=== PATIENT | male | born 1970 | race Caucasian/White ===

== ENCOUNTER 2018-11-11 17:30 | Inpatient (IN) | payer OTHER ==
[2018-11-11 18:19] LABS: ADD MAN DIFF? NO
[2018-11-11 18:23] LABS: WHITE BLOOD COUNT 14.3 10^3/ul (4.8-10.8)
[2018-11-11 18:24] LABS: BASOPHIL # 0.1 10^3/ul (0.0-0.1); BASOPHILS % 0.3 % (0.0-2.0); EOSINOPHILS # 0.3 10^3/ul (0.0-0.5); HEMATOCRIT 37.3 % (42.0-52.0); HEMOGLOBIN 10.9 g/dl (14.0-18.0); LYMPHOCYTES # 2.5 10^3/ul (0.8-2.9); LYMPHOCYTES % 17.3 % (15.0-51.0); MEAN CORPUSCULAR HEMOGLOBIN 23.5 pg (29.0-33.0); MEAN CORPUSCULAR HGB CONC 29.2 g/dl (32.0-37.0); MEAN CORPUSCULAR VOLUME 80.6 fl (82.0-101.0); MONOCYTE # 1.3 10^3/ul (0.3-0.9); MONOCYTES % 8.7 % (0.0-11.0); NEUTROPHIL # 10.1 10^3/ul (1.6-7.5); NEUTROPHILS % 70.7 % (39.0-77.0); PLATELET COUNT 383 10^3/UL (140-415); RED BLOOD COUNT 4.63 10^6/ul (4.70-6.10); RED CELL DISTRIBUTION WIDTH 21.9 % (11.5-14.5)
[2018-11-11 18:41] LABS: ANION GAP 9 (5-13); BLOOD UREA NITROGEN 15 mg/dl (7-20); CALCIUM 9.2 mg/dl (8.4-10.2); CARBON DIOXIDE 33 mmol/L (21-31); CHLORIDE 99 mmol/L (97-110); CREATININE 0.69 mg/dl (0.61-1.24); Estimated GFR > 60 mL/min (>60); GLUCOSE 185 mg/dl (70-220); POTASSIUM 3.5 mmol/L (3.5-5.1); SODIUM 141 mmol/L (135-144)
[2018-11-11] MEDS ORDERED: ONDANSETRON 4 MG INJ IV ×2 (19:00→22:30)
[2018-11-11] MEDS ORDERED: ACETAMINOPHEN 325 MG TAB PO ×2 (19:00→22:30)
[2018-11-11 19:27] LABS: TROPONIN-I < 0.012 ng/ml (0.000-0.120)
[2018-11-11 19:27] LABS: B-TYPE NATRIURETIC PEPTIDE 64 PG/ML (0-125)
[2018-11-11] MEDS ORDERED: NACL 0.9% 3 ML SYG IV (22:30)
[2018-11-12] MEDS: METHOTREXATE 2.5 MG TAB PO (06:37)
[2018-11-12 07:51] LABS: ADD MAN DIFF? NO
[2018-11-12 08:02] LABS: BASOPHIL # 0.1 10^3/ul (0.0-0.1); BASOPHILS % 0.4 % (0.0-2.0); EOSINOPHILS # 0.4 10^3/ul (0.0-0.5); EOSINOPHILS % 2.2 % (0.0-7.0); HEMATOCRIT 36.6 % (42.0-52.0); HEMOGLOBIN 10.6 g/dl (14.0-18.0); LYMPHOCYTES # 2.3 10^3/ul (0.8-2.9); LYMPHOCYTES % 14.4 % (15.0-51.0); MEAN CORPUSCULAR HEMOGLOBIN 23.8 pg (29.0-33.0); MEAN CORPUSCULAR VOLUME 82.2 fl (82.0-101.0); MEAN PLATELET VOLUME 10.1 fl (7.4-10.4); MONOCYTE # 1.5 10^3/ul (0.3-0.9); MONOCYTES % 9.3 % (0.0-11.0); NEUTROPHIL # 11.7 10^3/ul (1.6-7.5); NEUTROPHILS % 72.5 % (39.0-77.0); PLATELET COUNT 377 10^3/UL (140-415); RED BLOOD COUNT 4.45 10^6/ul (4.70-6.10); RED CELL DISTRIBUTION WIDTH 21.8 % (11.5-14.5)
[2018-11-12 08:02] LABS: WHITE BLOOD COUNT 16.1 10^3/ul (4.8-10.8)
[2018-11-12 08:17] LABS: ALANINE AMINOTRANSFERASE 29 IU/L (13-69); ALBUMIN 3.7 g/dl (3.3-4.9); ALBUMIN/GLOBULIN RATIO 1.08; ALKALINE PHOSPHATASE 45 IU/L (42-121); ANION GAP 9 (5-13); ASPARTATE AMINO TRANSFERASE 16 IU/L (15-46); BILIRUBIN,INDIRECT 0.5 mg/dl (0-1.1); BILIRUBIN,TOTAL 0.5 mg/dl (0.2-1.3); BLOOD UREA NITROGEN 12 mg/dl (7-20); CARBON DIOXIDE 33 mmol/L (21-31); CHLORIDE 99 mmol/L (97-110); CHOL/HDL RATIO 3.4 RATIO; CHOLESTEROL 144 mg/dl (100-200); CREATININE 0.61 mg/dl (0.61-1.24); Estimated GFR > 60 mL/min (>60); GLUCOSE 120 mg/dl (70-220); HDL CHOLESTEROL 42 mg/dl (27-67); LDL CHOLESTEROL,CALCULATED 88 mg/dl; MAGNESIUM 1.6 mg/dl (1.7-2.5); POTASSIUM 3.7 mmol/L (3.5-5.1); SODIUM 141 mmol/L (135-144); TOTAL PROTEIN 7.1 g/dl (6.1-8.1); TRIGLYCERIDES 69 mg/dl (0-149)
[2018-11-12] MEDS: LOSARTAN 50 MG TAB PO (09:10)
[2018-11-12] MEDS: FOLIC ACID 1 MG TAB PO (09:10)
[2018-11-12] MEDS: MOMETASONE 0.24 GM INHALER INH ×2 (09:11→21:47)
[2018-11-12] MEDS: predniSONE 20 MG TAB PO ×2 (09:11→21:48)
[2018-11-12] MEDS: ENOXAPARIN 40 MG/0.4 ML SYG SC (09:34)
[2018-11-12] MEDS: morphine 4 MG/ML VIAL IV ×3 (09:44→23:31)
[2018-11-12] MEDS: LEVOFLOXACIN 750MG/D5W (PMX) 150 ML IVPB (11:45)
[2018-11-12] MEDS: TRIAMCINOLONE ACET 0.025% 15 GM OINT TOP ×3 (11:45→21:47)
[2018-11-12 16:42] LABS: ADD UMIC NO; UR ASCORBIC ACID NEGATIVE (NEGATIVE); UR BILIRUBIN (Dip) NEGATIVE (NEGATIVE); UR BLOOD (Dip) NEGATIVE (NEGATIVE); UR CLARITY CLEAR (CLEAR); UR COLOR YELLOW (YELLOW); UR GLUCOSE (Dip) NEGATIVE (NEGATIVE); UR KETONES (Dip) NEGATIVE (NEGATIVE); UR LEUKOCYTE ESTERASE (Dip) NEGATIVE Leu/ul (NEGATIVE); UR NITRITE (Dip) NEGATIVE (NEGATIVE); UR SPECIFIC GRAVITY (Dip) 1.012 (1.003-1.030); UR TOTAL PROTEIN (Dip) NEGATIVE (NEGATIVE); UR UROBILINOGEN (Dip) NEGATIVE (NEGATIVE)
[2018-11-12] MEDS: MAGNESIUM SULFATE 3 GM in DEXTROSE 5% 100 ML IVPB (18:33)
[2018-11-12] MEDS: ATORVASTATIN 40 MG TAB PO (21:48)
[2018-11-13] MEDS: ALBUTEROL/IPRATROPIUM (NEB) 3 ML AMP HHN ×4 (00:39→21:03)
[2018-11-13] MEDS: morphine 4 MG/ML VIAL IV ×4 (03:49→21:26)
[2018-11-13 05:55] LABS: ADD MAN DIFF? NO
[2018-11-13 05:57] LABS: ABNORMAL IP MESSAGE 1; BASOPHILS % 0.2 % (0.0-2.0); EOSINOPHILS # 0.2 10^3/ul (0.0-0.5); EOSINOPHILS % 1.1 % (0.0-7.0); HEMATOCRIT 35.4 % (42.0-52.0); HEMOGLOBIN 10.1 g/dl (14.0-18.0); LYMPHOCYTES # 1.5 10^3/ul (0.8-2.9); LYMPHOCYTES % 9.8 % (15.0-51.0); MEAN CORPUSCULAR HEMOGLOBIN 23.5 pg (29.0-33.0); MEAN CORPUSCULAR HGB CONC 28.5 g/dl (32.0-37.0); MEAN CORPUSCULAR VOLUME 82.3 fl (82.0-101.0); MEAN PLATELET VOLUME 9.2 fl (7.4-10.4); MONOCYTES % 6.1 % (0.0-11.0); NEUTROPHIL # 12.9 10^3/ul (1.6-7.5); NEUTROPHILS % 82.2 % (39.0-77.0); PLATELET COUNT 318 10^3/UL (140-415); POSITIVE DIFF @See below; RED CELL DISTRIBUTION WIDTH 21.9 % (11.5-14.5)
[2018-11-13 05:57] LABS: WHITE BLOOD COUNT 15.7 10^3/ul (4.8-10.8)
[2018-11-13 06:45] LABS: ANION GAP 9 (5-13); BLOOD UREA NITROGEN 15 mg/dl (7-20); CALCIUM 8.9 mg/dl (8.4-10.2); CARBON DIOXIDE 33 mmol/L (21-31); CHLORIDE 97 mmol/L (97-110); CREATININE 0.59 mg/dl (0.61-1.24); Estimated GFR > 60 mL/min (>60); GLUCOSE 158 mg/dl (70-220); PHOSPHORUS 3.6 mg/dl (2.5-4.9); POTASSIUM 4.5 mmol/L (3.5-5.1); SODIUM 139 mmol/L (135-144)
[2018-11-13 07:23] LABS: MAGNESIUM 1.8 mg/dl (1.7-2.5)
[2018-11-13] MEDS: MOMETASONE 0.24 GM INHALER INH ×2 (08:48→20:36)
[2018-11-13] MEDS: LOSARTAN 50 MG TAB PO (08:48)
[2018-11-13] MEDS: predniSONE 20 MG TAB PO ×2 (08:48→20:35)
[2018-11-13] MEDS: FOLIC ACID 1 MG TAB PO (08:48)
[2018-11-13] MEDS: ENOXAPARIN 40 MG/0.4 ML SYG SC (08:53)
[2018-11-13] MEDS: TRIAMCINOLONE ACET 0.025% 15 GM OINT TOP ×3 (09:47→20:36)
[2018-11-13] MEDS: LEVOFLOXACIN 750MG/D5W (PMX) 150 ML IVPB (11:27)
[2018-11-13] MEDS: ATORVASTATIN 40 MG TAB PO (20:35)
[2018-11-14] MEDS: morphine 4 MG/ML VIAL IV ×3 (01:28→23:19)
[2018-11-14] MEDS: DIPHENHYDRAMINE 50 MG INJ IV (03:26)
[2018-11-14 06:23] LABS: ADD MAN DIFF? NO
[2018-11-14 06:34] LABS: ABNORMAL IP MESSAGE 1; BASOPHIL # 0.1 10^3/ul (0.0-0.1); BASOPHILS % 0.4 % (0.0-2.0); EOSINOPHILS # 0.2 10^3/ul (0.0-0.5); EOSINOPHILS % 1.4 % (0.0-7.0); HEMATOCRIT 35.1 % (42.0-52.0); HEMOGLOBIN 10.1 g/dl (14.0-18.0); LYMPHOCYTES # 1.5 10^3/ul (0.8-2.9); LYMPHOCYTES % 10.9 % (15.0-51.0); MEAN CORPUSCULAR HEMOGLOBIN 23.4 pg (29.0-33.0); MEAN CORPUSCULAR HGB CONC 28.8 g/dl (32.0-37.0); MEAN CORPUSCULAR VOLUME 81.4 fl (82.0-101.0); MONOCYTE # 0.8 10^3/ul (0.3-0.9); MONOCYTES % 5.6 % (0.0-11.0); NEUTROPHIL # 11.1 10^3/ul (1.6-7.5); NEUTROPHILS % 81.1 % (39.0-77.0); POSITIVE DIFF @See below; RED BLOOD COUNT 4.31 10^6/ul (4.70-6.10); RED CELL DISTRIBUTION WIDTH 22.1 % (11.5-14.5)
[2018-11-14 06:34] LABS: WHITE BLOOD COUNT 13.6 10^3/ul (4.8-10.8)
[2018-11-14 06:38] LABS: MEAN PLATELET VOLUME 11.1 fl (7.4-10.4); PLATELET COUNT 231 10^3/UL (140-415)
[2018-11-14] MEDS: MOMETASONE 0.24 GM INHALER INH ×2 (09:10→20:52)
[2018-11-14] MEDS: ENOXAPARIN 40 MG/0.4 ML SYG SC (09:11)
[2018-11-14] MEDS: LOSARTAN 50 MG TAB PO (09:12)
[2018-11-14] MEDS: DIPHENHYDRAMINE 25 MG CAP PO ×2 (09:12→19:35)
[2018-11-14] MEDS: FOLIC ACID 1 MG TAB PO (09:12)
[2018-11-14] MEDS: predniSONE 20 MG TAB PO (09:12)
[2018-11-14] MEDS: TRIAMCINOLONE ACET 0.025% 15 GM OINT TOP ×3 (09:15→23:14)
[2018-11-14] MEDS: LEVOFLOXACIN 750MG/D5W (PMX) 150 ML IVPB (16:12)
[2018-11-14] MEDS: ALBUTEROL/IPRATROPIUM (NEB) 3 ML AMP HHN (17:47)
[2018-11-14] MEDS: ATORVASTATIN 40 MG TAB PO (20:52)
[2018-11-14] MEDS ORDERED: TRIAMCINOLONE ACET 0.025% 15 GM OINT TOP (21:00)
[2018-11-15] MEDS: DIPHENHYDRAMINE 25 MG CAP PO ×2 (04:54→14:34)
[2018-11-15] MEDS: GUAIFENESIN/CODEINE 5ML CUP PO (05:39)
[2018-11-15] MEDS: FOLIC ACID 1 MG TAB PO (08:29)
[2018-11-15] MEDS: TRIAMCINOLONE ACET 0.025% 15 GM OINT TOP ×3 (08:29→21:20)
[2018-11-15] MEDS: LOSARTAN 50 MG TAB PO (08:30)
[2018-11-15] MEDS: MOMETASONE 0.24 GM INHALER INH ×2 (08:30→21:18)
[2018-11-15] MEDS: morphine 4 MG/ML VIAL IV (08:32)
[2018-11-15] MEDS: ENOXAPARIN 40 MG/0.4 ML SYG SC (08:47)
[2018-11-15] MEDS: LEVOFLOXACIN 750MG/D5W (PMX) 150 ML IVPB (11:36)
[2018-11-15] MEDS: ALBUTEROL/IPRATROPIUM (NEB) 3 ML AMP HHN (20:44)
[2018-11-15] MEDS: ATORVASTATIN 40 MG TAB PO (21:18)
[2018-11-16] MEDS: LEVOFLOXACIN 750 MG TABLET PO (06:32)
[2018-11-16] MEDS: LOSARTAN 50 MG TAB PO (08:58)
[2018-11-16] MEDS: FOLIC ACID 1 MG TAB PO (08:58)
[2018-11-16] MEDS: TRIAMCINOLONE ACET 0.025% 15 GM OINT TOP ×3 (08:58→20:36)
[2018-11-16] MEDS: MOMETASONE 0.24 GM INHALER INH ×2 (08:58→20:35)
[2018-11-16] MEDS: ENOXAPARIN 40 MG/0.4 ML SYG SC (09:06)
[2018-11-16] MEDS: GUAIFENESIN 20 MG/ML 5ML CUP PO (20:35)
[2018-11-16] MEDS: ATORVASTATIN 40 MG TAB PO (20:36)
[2018-11-17] MEDS: GUAIFENESIN 20 MG/ML 5ML CUP PO ×2 (02:27→05:45)
[2018-11-17] MEDS: LEVOFLOXACIN 750 MG TABLET PO (05:45)
[2018-11-17] MEDS: MOMETASONE 0.24 GM INHALER INH ×2 (09:00→20:59)
[2018-11-17] MEDS: LOSARTAN 50 MG TAB PO (09:00)
[2018-11-17] MEDS: FOLIC ACID 1 MG TAB PO (09:00)
[2018-11-17] MEDS: TRIAMCINOLONE ACET 0.025% 15 GM OINT TOP ×3 (09:00→20:59)
[2018-11-17] MEDS: ENOXAPARIN 40 MG/0.4 ML SYG SC (09:00)
[2018-11-17] MEDS: NYSTATIN 30 GM POWDER BTL TOP ×2 (13:30→20:59)
[2018-11-17] MEDS: predniSONE 20 MG TAB PO (14:28)
[2018-11-17] MEDS: ALBUTEROL/IPRATROPIUM (NEB) 3 ML AMP HHN (15:55)
[2018-11-17] MEDS: HYDROCODONE/APAP (5/325) TAB PO (18:35)
[2018-11-17] MEDS: ATORVASTATIN 40 MG TAB PO (20:59)
[2018-11-17] MEDS: DIPHENHYDRAMINE 25 MG CAP PO (20:59)
[2018-11-17] MEDS: FUROSEMIDE 40 MG INJ IV (22:30)
[2018-11-18] MEDS: DIPHENHYDRAMINE 25 MG CAP PO ×3 (03:33→23:26)
[2018-11-18] MEDS: LEVOFLOXACIN 750 MG TABLET PO (05:49)
[2018-11-18] MEDS: TRIAMCINOLONE ACET 0.025% 15 GM OINT TOP ×3 (09:44→20:56)
[2018-11-18] MEDS: MOMETASONE 0.24 GM INHALER INH ×2 (09:44→20:55)
[2018-11-18] MEDS: FOLIC ACID 1 MG TAB PO (09:44)
[2018-11-18] MEDS: NYSTATIN 30 GM POWDER BTL TOP ×2 (09:44→20:55)
[2018-11-18] MEDS: LOSARTAN 50 MG TAB PO (09:45)
[2018-11-18] MEDS: ENOXAPARIN 40 MG/0.4 ML SYG SC (09:48)
[2018-11-18] MEDS: predniSONE 20 MG TAB PO (09:50)
[2018-11-18] MEDS: METHOTREXATE 2.5 MG TAB PO (16:45)
[2018-11-18] MEDS: FUROSEMIDE 20 MG TAB PO (19:05)
[2018-11-18] MEDS: ATORVASTATIN 40 MG TAB PO (20:55)
[2018-11-18] MEDS: ALBUTEROL/IPRATROPIUM (NEB) 3 ML AMP HHN (21:24)
[2018-11-18] MEDS: morphine 2 MG INJ IV (22:40)
[2018-11-19] MEDS: DIPHENHYDRAMINE 25 MG CAP PO ×2 (05:21→23:00)
[2018-11-19] MEDS: FUROSEMIDE 20 MG TAB PO (05:21)
[2018-11-19] MEDS: LEVOFLOXACIN 750 MG TABLET PO (05:21)
[2018-11-19] MEDS: ALBUTEROL/IPRATROPIUM (NEB) 3 ML AMP HHN ×2 (06:09→08:48)
[2018-11-19] MEDS: FUROSEMIDE 20 MG INJ IV ×2 (09:41→18:26)
[2018-11-19] MEDS: LOSARTAN 50 MG TAB PO (09:41)
[2018-11-19] MEDS: predniSONE 20 MG TAB PO (09:41)
[2018-11-19] MEDS: FOLIC ACID 1 MG TAB PO (09:41)
[2018-11-19] MEDS: ENOXAPARIN 40 MG/0.4 ML SYG SC (09:48)
[2018-11-19] MEDS: TRIAMCINOLONE ACET 0.025% 15 GM OINT TOP ×3 (09:49→21:09)
[2018-11-19] MEDS: MOMETASONE 0.24 GM INHALER INH ×2 (09:49→21:08)
[2018-11-19] MEDS: NYSTATIN 30 GM POWDER BTL TOP ×2 (09:49→21:09)
[2018-11-19] MEDS: traMADol 50 MG TAB PO ×2 (12:44→23:00)
[2018-11-19] MEDS ORDERED: FUROSEMIDE 20 MG INJ IV (18:00)
[2018-11-19] MEDS: ATORVASTATIN 40 MG TAB PO (21:08)
[2018-11-20] MEDS: ALBUTEROL/IPRATROPIUM (NEB) 3 ML AMP HHN ×3 (00:50→20:53)
[2018-11-20] MEDS: LEVOFLOXACIN 750 MG TABLET PO (05:14)
[2018-11-20] MEDS: DIPHENHYDRAMINE 25 MG CAP PO ×3 (05:14→23:37)
[2018-11-20] MEDS: traMADol 50 MG TAB PO ×2 (05:14→14:33)
[2018-11-20] MEDS: FUROSEMIDE 20 MG INJ IV ×2 (05:15→17:41)
[2018-11-20] MEDS: predniSONE 20 MG TAB PO (08:27)
[2018-11-20] MEDS: FOLIC ACID 1 MG TAB PO (08:27)
[2018-11-20] MEDS: LOSARTAN 50 MG TAB PO (08:28)
[2018-11-20] MEDS: MOMETASONE 0.24 GM INHALER INH ×2 (08:28→21:53)
[2018-11-20] MEDS: NYSTATIN 30 GM POWDER BTL TOP ×2 (08:33→21:53)
[2018-11-20] MEDS: TRIAMCINOLONE ACET 0.025% 15 GM OINT TOP ×3 (08:33→21:56)
[2018-11-20] MEDS: ENOXAPARIN 40 MG/0.4 ML SYG SC (08:35)
[2018-11-20] MEDS ORDERED: morphine 2 MG INJ IV (09:30)
[2018-11-20] MEDS ORDERED: METHYLPREDNISOLONE 40 MG INJ IV (12:00)
[2018-11-20] MEDS: ATORVASTATIN 40 MG TAB PO (21:53)
[2018-11-21] MEDS: traMADol 50 MG TAB PO ×3 (01:14→22:58)
[2018-11-21] MEDS: LEVOFLOXACIN 750 MG TABLET PO (06:00)
[2018-11-21] MEDS: FUROSEMIDE 20 MG INJ IV (06:00)
[2018-11-21 08:13] LABS: ADD MAN DIFF? NO
[2018-11-21 08:29] LABS: WHITE BLOOD COUNT 10.7 10^3/ul (4.8-10.8)
[2018-11-21 08:29] LABS: ABNORMAL IP MESSAGE 1; BASOPHILS % 0.4 % (0.0-2.0); EOSINOPHILS # 0.3 10^3/ul (0.0-0.5); EOSINOPHILS % 2.4 % (0.0-7.0); HEMATOCRIT 35.9 % (42.0-52.0); HEMOGLOBIN 9.9 g/dl (14.0-18.0); LYMPHOCYTES % 18.7 % (15.0-51.0); MEAN CORPUSCULAR HEMOGLOBIN 23.1 pg (29.0-33.0); MEAN CORPUSCULAR HGB CONC 27.6 g/dl (32.0-37.0); MEAN CORPUSCULAR VOLUME 83.9 fl (82.0-101.0); MEAN PLATELET VOLUME 9.5 fl (7.4-10.4); MONOCYTE # 0.7 10^3/ul (0.3-0.9); MONOCYTES % 6.8 % (0.0-11.0); NEUTROPHIL # 7.6 10^3/ul (1.6-7.5); NEUTROPHILS % 71.3 % (39.0-77.0); PLATELET COUNT 389 10^3/UL (140-415); POSITIVE DIFF @See below; RED BLOOD COUNT 4.28 10^6/ul (4.70-6.10); RED CELL DISTRIBUTION WIDTH 21.4 % (11.5-14.5)
[2018-11-21 08:43] LABS: BLOOD UREA NITROGEN 20 mg/dl (7-20); CALCIUM 9.1 mg/dl (8.4-10.2); CHLORIDE 90 mmol/L (97-110); CREATININE 0.56 mg/dl (0.61-1.24); Estimated GFR > 60 mL/min (>60); GLUCOSE 104 mg/dl (70-220); POTASSIUM 3.9 mmol/L (3.5-5.1); SODIUM 140 mmol/L (135-144)
[2018-11-21 08:51] LABS: ANION GAP 10 (5-13)
[2018-11-21 08:56] LABS: CARBON DIOXIDE 40 mmol/L (21-31)
[2018-11-21] MEDS: ALBUTEROL/IPRATROPIUM (NEB) 3 ML AMP HHN ×3 (08:57→22:11)
[2018-11-21] MEDS: MOMETASONE 0.24 GM INHALER INH ×2 (09:09→21:39)
[2018-11-21] MEDS: predniSONE 20 MG TAB PO (09:09)
[2018-11-21] MEDS: LOSARTAN 50 MG TAB PO (09:09)
[2018-11-21] MEDS: FOLIC ACID 1 MG TAB PO (09:09)
[2018-11-21] MEDS: NYSTATIN 30 GM POWDER BTL TOP ×2 (09:14→19:43)
[2018-11-21] MEDS: ENOXAPARIN 40 MG/0.4 ML SYG SC (09:14)
[2018-11-21] MEDS: TRIAMCINOLONE ACET 0.025% 15 GM OINT TOP ×3 (09:14→19:43)
[2018-11-21] MEDS: POTASSIUM CHLORIDE (SR) 20 MEQ TAB PO (09:37)
[2018-11-21 12:15] LABS: AADO2 Arterial 82.1 mmHg (7.0-24.0); Allen Test ACCEPTAB; Arterial Base Excess 10.6 mmol/L (-3.0-3); Arterial Blood Gas Oxygen Sat 94.3 mmHG (95.0-98.0); Arterial COHb 0.8 % (0.0-3.0); Arterial Fraction of Oxyhgb 93.4 % (93.0-99.0); Arterial MetHb 0.2 % (0.0-1.5); Arterial pCO2 66.4 mmhg (35-45); MODE NASAL CANNULA; Site Left Radial
[2018-11-21] MEDS: DIPHENHYDRAMINE 25 MG CAP PO (14:45)
[2018-11-21] MEDS: ATORVASTATIN 40 MG TAB PO (19:41)
[2018-11-22] MEDS: DIPHENHYDRAMINE 25 MG CAP PO ×2 (02:54→05:49)
[2018-11-22] MEDS: traMADol 50 MG TAB PO (05:14)
[2018-11-22 07:37] LABS: BLOOD UREA NITROGEN 17 mg/dl (7-20); CALCIUM 9.4 mg/dl (8.4-10.2); CHLORIDE 94 mmol/L (97-110); CREATININE 0.66 mg/dl (0.61-1.24); Estimated GFR > 60 mL/min (>60); GLUCOSE 105 mg/dl (70-220); SODIUM 139 mmol/L (135-144)
[2018-11-22 08:23] LABS: ANION GAP 7 (5-13)
[2018-11-22 08:29] LABS: CARBON DIOXIDE 38 mmol/L (21-31)
[2018-11-22] MEDS: FOLIC ACID 1 MG TAB PO (09:28)
[2018-11-22] MEDS: LOSARTAN 50 MG TAB PO (09:29)
[2018-11-22] MEDS: predniSONE 20 MG TAB PO (09:30)
[2018-11-22] MEDS: ENOXAPARIN 40 MG/0.4 ML SYG SC (09:35)
[2018-11-22] MEDS: KETOROLAC 30 MG INJ IV ×2 (09:36→17:48)
[2018-11-22] MEDS: NYSTATIN 30 GM POWDER BTL TOP ×2 (09:36→21:57)
[2018-11-22] MEDS: MOMETASONE 0.24 GM INHALER INH ×2 (09:37→21:57)
[2018-11-22] MEDS: TRIAMCINOLONE ACET 0.025% 15 GM OINT TOP ×3 (09:37→21:57)
[2018-11-22] MEDS: ALBUTEROL/IPRATROPIUM (NEB) 3 ML AMP HHN (14:22)
[2018-11-22] MEDS: FUROSEMIDE 20 MG INJ IV (17:48)
[2018-11-22] MEDS: ATORVASTATIN 40 MG TAB PO (21:56)
[2018-11-22] MEDS: CLOBETASOL 0.05% 15 GM OINT TOP (21:57)
[2018-11-23] MEDS: KETOROLAC 30 MG INJ IV ×2 (01:04→09:05)
[2018-11-23] MEDS: FUROSEMIDE 20 MG INJ IV ×2 (06:26→18:26)
[2018-11-23] MEDS: predniSONE 20 MG TAB PO (08:35)
[2018-11-23] MEDS: FOLIC ACID 1 MG TAB PO (08:35)
[2018-11-23] MEDS: LOSARTAN 50 MG TAB PO (08:36)
[2018-11-23] MEDS: NYSTATIN 30 GM POWDER BTL TOP ×2 (08:36→21:38)
[2018-11-23] MEDS: CLOBETASOL 0.05% 15 GM OINT TOP ×2 (08:37→21:38)
[2018-11-23] MEDS: MOMETASONE 0.24 GM INHALER INH ×2 (08:37→21:39)
[2018-11-23] MEDS: TRIAMCINOLONE ACET 0.025% 15 GM OINT TOP ×3 (08:39→21:42)
[2018-11-23] MEDS: ENOXAPARIN 40 MG/0.4 ML SYG SC (09:03)
[2018-11-23] MEDS: morphine 2 MG INJ IV (17:25)
[2018-11-23] MEDS: ATORVASTATIN 40 MG TAB PO (21:38)
[2018-11-24] MEDS: KETOROLAC 30 MG INJ IV (00:07)
[2018-11-24] MEDS: FUROSEMIDE 20 MG INJ IV ×2 (06:40→17:34)
[2018-11-24] MEDS: LOSARTAN 50 MG TAB PO (09:10)
[2018-11-24] MEDS: predniSONE 20 MG TAB PO (09:10)
[2018-11-24] MEDS: MOMETASONE 0.24 GM INHALER INH ×2 (09:10→20:48)
[2018-11-24] MEDS: FOLIC ACID 1 MG TAB PO (09:10)
[2018-11-24] MEDS: NYSTATIN 30 GM POWDER BTL TOP ×2 (09:11→20:47)
[2018-11-24] MEDS: TRIAMCINOLONE ACET 0.025% 15 GM OINT TOP ×2 (09:11→12:52)
[2018-11-24] MEDS: CLOBETASOL 0.05% 15 GM OINT TOP ×2 (09:11→20:47)
[2018-11-24] MEDS: ENOXAPARIN 40 MG/0.4 ML SYG SC (11:30)
[2018-11-24] MEDS: DAKINS 0.0125%(1/40) 473 ML SOLUTION TP (16:30)
[2018-11-24] MEDS: ATORVASTATIN 40 MG TAB PO (20:47)
[2018-11-25] MEDS: TRIAMCINOLONE ACET 0.025% 15 GM OINT TOP ×4 (00:55→20:54)
[2018-11-25] MEDS: KETOROLAC 30 MG INJ IV (02:55)
[2018-11-25] MEDS: FUROSEMIDE 20 MG INJ IV ×5 (05:04→21:07)
[2018-11-25] MEDS: NYSTATIN 30 GM POWDER BTL TOP ×2 (08:35→20:54)
[2018-11-25] MEDS: FOLIC ACID 1 MG TAB PO (08:36)
[2018-11-25] MEDS: predniSONE 20 MG TAB PO (08:36)
[2018-11-25] MEDS: MOMETASONE 0.24 GM INHALER INH ×2 (08:36→20:53)
[2018-11-25] MEDS: DAKINS 0.0125%(1/40) 473 ML SOLUTION TP (08:38)
[2018-11-25] MEDS: LOSARTAN 50 MG TAB PO (08:40)
[2018-11-25] MEDS: ENOXAPARIN 40 MG/0.4 ML SYG SC (08:52)
[2018-11-25] MEDS: CLOBETASOL 0.05% 15 GM OINT TOP ×2 (08:52→21:00)
[2018-11-25] MEDS: DIPHENHYDRAMINE 25 MG CAP PO (08:54)
[2018-11-25] MEDS: traMADol 50 MG TAB PO (13:27)
[2018-11-25] MEDS: METHOTREXATE 2.5 MG TAB PO (13:30)
[2018-11-25] MEDS: ALBUTEROL/IPRATROPIUM (NEB) 3 ML AMP HHN ×2 (15:28→21:07)
[2018-11-25] MEDS: ATORVASTATIN 40 MG TAB PO (20:52)
[2018-11-26] MEDS: DIPHENHYDRAMINE 25 MG CAP PO ×3 (00:56→22:10)
[2018-11-26] MEDS: traMADol 50 MG TAB PO ×2 (03:00→17:36)
[2018-11-26] MEDS: KETOROLAC 30 MG INJ IV (03:59)
[2018-11-26] MEDS: DAKINS 0.0125%(1/40) 473 ML SOLUTION TP (09:00)
[2018-11-26] MEDS: TRIAMCINOLONE ACET 0.025% 15 GM OINT TOP ×3 (09:00→21:00)
[2018-11-26] MEDS: predniSONE 20 MG TAB PO (09:21)
[2018-11-26] MEDS: FUROSEMIDE 20 MG INJ IV ×2 (09:22→22:11)
[2018-11-26] MEDS: CLOBETASOL 0.05% 15 GM OINT TOP ×2 (09:22→22:03)
[2018-11-26] MEDS: LOSARTAN 50 MG TAB PO (09:22)
[2018-11-26] MEDS: FOLIC ACID 1 MG TAB PO (09:22)
[2018-11-26] MEDS: MOMETASONE 0.24 GM INHALER INH ×2 (09:23→22:03)
[2018-11-26] MEDS: NYSTATIN 30 GM POWDER BTL TOP ×2 (09:23→22:03)
[2018-11-26] MEDS: ENOXAPARIN 40 MG/0.4 ML SYG SC (09:34)
[2018-11-26] MEDS ORDERED: VANCOMYCIN IV PER PHARMACY XX (17:00)
[2018-11-26] MEDS: morphine 2 MG INJ IV (20:33)
[2018-11-26] MEDS: VANCOMYCIN HCL 2 GM in SOD CHLORIDE 0.9% 500 ML IVPB ×2 (20:34→23:39)
[2018-11-26] MEDS: ATORVASTATIN 40 MG TAB PO (22:11)
[2018-11-27] MEDS: morphine 2 MG INJ IV ×3 (01:09→18:18)
[2018-11-27] MEDS: traMADol 50 MG TAB PO (05:29)
[2018-11-27] MEDS: MOMETASONE 0.24 GM INHALER INH ×2 (09:33→20:42)
[2018-11-27] MEDS: VANCOMYCIN HCL 1.75 GM in SOD CHLORIDE 0.9% 500 ML IVPB ×2 (09:34→20:42)
[2018-11-27] MEDS: NYSTATIN 30 GM POWDER BTL TOP ×2 (09:34→20:43)
[2018-11-27] MEDS: CLOBETASOL 0.05% 15 GM OINT TOP ×2 (09:34→20:43)
[2018-11-27] MEDS: LOSARTAN 50 MG TAB PO (09:35)
[2018-11-27] MEDS: FOLIC ACID 1 MG TAB PO (09:35)
[2018-11-27] MEDS: FUROSEMIDE 20 MG INJ IV ×2 (09:35→20:43)
[2018-11-27] MEDS: predniSONE 20 MG TAB PO (09:36)
[2018-11-27] MEDS: TRIAMCINOLONE ACET 0.025% 15 GM OINT TOP ×3 (09:37→20:44)
[2018-11-27] MEDS: DAKINS 0.0125%(1/40) 473 ML SOLUTION TP (09:37)
[2018-11-27] MEDS: ENOXAPARIN 40 MG/0.4 ML SYG SC (09:54)
[2018-11-27] MEDS: DIPHENHYDRAMINE 25 MG CAP PO (10:28)
[2018-11-27] MEDS: KETOROLAC 30 MG INJ IV (14:53)
[2018-11-27] MEDS: ATORVASTATIN 40 MG TAB PO (20:42)
[2018-11-28] MEDS: morphine 2 MG INJ IV ×2 (00:26→12:29)
[2018-11-28] MEDS: DIPHENHYDRAMINE 25 MG CAP PO ×2 (01:15→13:38)
[2018-11-28] MEDS: KETOROLAC 30 MG INJ IV ×2 (04:16→15:34)
[2018-11-28 07:41] LABS: CREATININE 0.86 mg/dl (0.61-1.24)
[2018-11-28 07:41] LABS: BLOOD UREA NITROGEN 26 mg/dl (7-20)
[2018-11-28] MEDS: FUROSEMIDE 20 MG INJ IV ×2 (09:05→21:50)
[2018-11-28] MEDS: CLOBETASOL 0.05% 15 GM OINT TOP ×3 (09:06→21:49)
[2018-11-28] MEDS: NYSTATIN 30 GM POWDER BTL TOP ×3 (09:06→21:49)
[2018-11-28] MEDS: FOLIC ACID 1 MG TAB PO (09:06)
[2018-11-28] MEDS: LOSARTAN 50 MG TAB PO (09:06)
[2018-11-28] MEDS: MOMETASONE 0.24 GM INHALER INH ×2 (09:06→21:48)
[2018-11-28] MEDS: DAKINS 0.0125%(1/40) 473 ML SOLUTION TP (09:07)
[2018-11-28] MEDS: TRIAMCINOLONE ACET 0.025% 15 GM OINT TOP ×4 (09:07→21:50)
[2018-11-28] MEDS: VANCOMYCIN HCL 1.75 GM in SOD CHLORIDE 0.9% 500 ML IVPB ×2 (09:10→21:48)
[2018-11-28] MEDS: ENOXAPARIN 40 MG/0.4 ML SYG SC (09:17)
[2018-11-28] MEDS: ALBUTEROL/IPRATROPIUM (NEB) 3 ML AMP HHN (20:56)
[2018-11-28] MEDS: ATORVASTATIN 40 MG TAB PO (21:00)
[2018-11-29] MEDS: morphine 2 MG INJ IV (02:22)
[2018-11-29] MEDS: KETOROLAC 30 MG INJ IV ×3 (04:27→22:19)
[2018-11-29] MEDS: LOSARTAN 50 MG TAB PO (09:35)
[2018-11-29] MEDS: FOLIC ACID 1 MG TAB PO (09:36)
[2018-11-29] MEDS: NYSTATIN 30 GM POWDER BTL TOP ×2 (09:37→21:52)
[2018-11-29] MEDS: MOMETASONE 0.24 GM INHALER INH ×2 (09:37→21:51)
[2018-11-29] MEDS: TRIAMCINOLONE ACET 0.025% 15 GM OINT TOP ×3 (09:37→21:00)
[2018-11-29] MEDS: CLOBETASOL 0.05% 15 GM OINT TOP ×2 (09:38→21:52)
[2018-11-29] MEDS: DAKINS 0.0125%(1/40) 473 ML SOLUTION TP (09:38)
[2018-11-29] MEDS: ENOXAPARIN 40 MG/0.4 ML SYG SC (09:54)
[2018-11-29] MEDS: VANCOMYCIN HCL 1.75 GM in SOD CHLORIDE 0.9% 500 ML IVPB ×2 (10:53→21:51)
[2018-11-29] MEDS: FUROSEMIDE 20 MG INJ IV (10:57)
[2018-11-29 11:46] LABS: ANION GAP 6 (5-13); BLOOD UREA NITROGEN 27 mg/dl (7-20); CALCIUM 9.2 mg/dl (8.4-10.2); CARBON DIOXIDE 39 mmol/L (21-31); CHLORIDE 96 mmol/L (97-110); Estimated GFR > 60 mL/min (>60); GLUCOSE 153 mg/dl (70-220); POTASSIUM 4.5 mmol/L (3.5-5.1); SODIUM 141 mmol/L (135-144)
[2018-11-29] MEDS: ALBUTEROL/IPRATROPIUM (NEB) 3 ML AMP HHN (20:00)
[2018-11-29] MEDS: ATORVASTATIN 40 MG TAB PO (21:51)
[2018-11-30] MEDS: DIPHENHYDRAMINE 25 MG CAP PO ×2 (00:35→11:49)
[2018-11-30] MEDS: traMADol 50 MG TAB PO ×3 (00:36→21:16)
[2018-11-30] MEDS: morphine 2 MG INJ IV (02:36)
[2018-11-30 08:47] LABS: ADD MAN DIFF? NO
[2018-11-30 08:53] LABS: ABNORMAL IP MESSAGE 1; BASOPHIL # 0.1 10^3/ul (0.0-0.1); BASOPHILS % 0.5 % (0.0-2.0); EOSINOPHILS # 0.4 10^3/ul (0.0-0.5); EOSINOPHILS % 3.5 % (0.0-7.0); HEMATOCRIT 34.9 % (42.0-52.0); HEMOGLOBIN 9.7 g/dl (14.0-18.0); LYMPHOCYTES # 1.5 10^3/ul (0.8-2.9); LYMPHOCYTES % 14.2 % (15.0-51.0); MEAN CORPUSCULAR HEMOGLOBIN 23.6 pg (29.0-33.0); MEAN CORPUSCULAR HGB CONC 27.8 g/dl (32.0-37.0); MEAN CORPUSCULAR VOLUME 84.9 fl (82.0-101.0); MEAN PLATELET VOLUME 9.6 fl (7.4-10.4); MONOCYTE # 0.8 10^3/ul (0.3-0.9); MONOCYTES % 7.5 % (0.0-11.0); NEUTROPHIL # 7.8 10^3/ul (1.6-7.5); NEUTROPHILS % 73.1 % (39.0-77.0); PLATELET COUNT 358 10^3/UL (140-415); POSITIVE DIFF @See below; RED BLOOD COUNT 4.11 10^6/ul (4.70-6.10); RED CELL DISTRIBUTION WIDTH 21.8 % (11.5-14.5)
[2018-11-30 08:53] LABS: WHITE BLOOD COUNT 10.7 10^3/ul (4.8-10.8)
[2018-11-30] MEDS: DAKINS 0.0125%(1/40) 473 ML SOLUTION TP (09:00)
[2018-11-30] MEDS: LOSARTAN 50 MG TAB PO (09:00)
[2018-11-30] MEDS: CLOBETASOL 0.05% 15 GM OINT TOP ×2 (09:00→13:38)
[2018-11-30] MEDS: FOLIC ACID 1 MG TAB PO (09:00)
[2018-11-30] MEDS: TRIAMCINOLONE ACET 0.025% 15 GM OINT TOP ×3 (09:00→20:59)
[2018-11-30] MEDS: MOMETASONE 0.24 GM INHALER INH ×2 (09:01→20:59)
[2018-11-30] MEDS: NYSTATIN 30 GM POWDER BTL TOP ×2 (09:01→20:59)
[2018-11-30] MEDS: FUROSEMIDE 20 MG INJ IV (09:01)
[2018-11-30] MEDS: ENOXAPARIN 40 MG/0.4 ML SYG SC (09:12)
[2018-11-30 09:17] LABS: ANION GAP 5 (5-13); BLOOD UREA NITROGEN 21 mg/dl (7-20); CALCIUM 9.1 mg/dl (8.4-10.2); CARBON DIOXIDE 39 mmol/L (21-31); CHLORIDE 97 mmol/L (97-110); CREATININE 0.62 mg/dl (0.61-1.24); Estimated GFR > 60 mL/min (>60); GLUCOSE 100 mg/dl (70-220); POTASSIUM 4.4 mmol/L (3.5-5.1); SODIUM 141 mmol/L (135-144)
[2018-11-30] MEDS: KETOROLAC 30 MG INJ IV (09:34)
[2018-11-30] MEDS: VANCOMYCIN HCL 1.75 GM in SOD CHLORIDE 0.9% 500 ML IVPB ×2 (09:35→20:59)
[2018-11-30] MEDS: ATORVASTATIN 40 MG TAB PO (21:00)
[2018-11-30] MEDS ORDERED: KETOROLAC 30 MG INJ IV (22:00)
[2018-12-01] MEDS: ALBUTEROL/IPRATROPIUM (NEB) 3 ML AMP HHN (01:48)
[2018-12-01] MEDS: DIPHENHYDRAMINE 25 MG CAP PO (04:58)
[2018-12-01] MEDS: morphine 2 MG INJ IV (08:04)
[2018-12-01] MEDS: FOLIC ACID 1 MG TAB PO (09:33)
[2018-12-01] MEDS: ENOXAPARIN 40 MG/0.4 ML SYG SC (09:35)
[2018-12-01] MEDS: MOMETASONE 0.24 GM INHALER INH ×2 (09:35→20:32)
[2018-12-01] MEDS: CLOBETASOL 0.05% 15 GM OINT TOP ×2 (09:36→20:34)
[2018-12-01] MEDS: TRIAMCINOLONE ACET 0.025% 15 GM OINT TOP ×3 (09:36→20:34)
[2018-12-01] MEDS: DAKINS 0.0125%(1/40) 473 ML SOLUTION TP (09:36)
[2018-12-01 09:37] LABS: VANCOMYCIN,TROUGH 6.5 ug/ml (10.0-20.0)
[2018-12-01] MEDS: FUROSEMIDE 20 MG INJ IV (09:37)
[2018-12-01] MEDS: LOSARTAN 50 MG TAB PO (09:38)
[2018-12-01] MEDS: NYSTATIN 30 GM POWDER BTL TOP ×2 (09:47→20:34)
[2018-12-01] MEDS: VANCOMYCIN HCL 1.75 GM in SOD CHLORIDE 0.9% 500 ML IVPB ×2 (10:13→20:32)
[2018-12-01] MEDS: KETOROLAC 15 MG INJ IV (20:30)
[2018-12-01] MEDS: ATORVASTATIN 40 MG TAB PO (20:32)
[2018-12-02] MEDS: morphine 2 MG INJ IV (00:31)
[2018-12-02] MEDS: FUROSEMIDE 20 MG INJ IV ×2 (03:06→08:37)
[2018-12-02] MEDS: traMADol 50 MG TAB PO (03:13)
[2018-12-02] MEDS: DIPHENHYDRAMINE 25 MG CAP PO (05:32)
[2018-12-02] MEDS: FOLIC ACID 1 MG TAB PO (08:37)
[2018-12-02] MEDS: LOSARTAN 50 MG TAB PO (08:37)
[2018-12-02 08:38] LABS: VANCOMYCIN,TROUGH 6.7 ug/ml (10.0-20.0)
[2018-12-02] MEDS: MOMETASONE 0.24 GM INHALER INH ×2 (08:38→20:33)
[2018-12-02] MEDS: ENOXAPARIN 40 MG/0.4 ML SYG SC (08:45)
[2018-12-02 09:36] LABS: CREATININE 0.59 mg/dl (0.61-1.24)
[2018-12-02 09:36] LABS: BLOOD UREA NITROGEN 16 mg/dl (7-20)
[2018-12-02] MEDS: CLOBETASOL 0.05% 15 GM OINT TOP ×2 (09:43→20:38)
[2018-12-02] MEDS: DAKINS 0.0125%(1/40) 473 ML SOLUTION TP (09:43)
[2018-12-02] MEDS: VANCOMYCIN HCL 1.75 GM in SOD CHLORIDE 0.9% 500 ML IVPB (09:43)
[2018-12-02] MEDS: TRIAMCINOLONE ACET 0.025% 15 GM OINT TOP ×3 (09:43→20:39)
[2018-12-02] MEDS: NYSTATIN 30 GM POWDER BTL TOP ×2 (09:43→20:38)
[2018-12-02] MEDS: KETOROLAC 15 MG INJ IM (18:20)
[2018-12-02] MEDS: VANCOMYCIN HCL 1.5 GM in SOD CHLORIDE 0.9% 250 ML IVPB (18:32)
[2018-12-02] MEDS: ATORVASTATIN 40 MG TAB PO (20:32)
[2018-12-02] MEDS: KETOROLAC 30 MG INJ IV (22:37)
[2018-12-03] MEDS: PANTOPRAZOLE 40 MG INJ IV (01:11)
[2018-12-03 01:15] LABS: ADD MAN DIFF? NO
[2018-12-03 01:16] LABS: ABNORMAL IP MESSAGE 1; BASOPHILS % 0.3 % (0.0-2.0); EOSINOPHILS # 0.3 10^3/ul (0.0-0.5); EOSINOPHILS % 2.3 % (0.0-7.0); HEMATOCRIT 34.7 % (42.0-52.0); HEMOGLOBIN 9.6 g/dl (14.0-18.0); LYMPHOCYTES # 1.6 10^3/ul (0.8-2.9); LYMPHOCYTES % 12.4 % (15.0-51.0); MEAN CORPUSCULAR HEMOGLOBIN 23.8 pg (29.0-33.0); MEAN CORPUSCULAR HGB CONC 27.7 g/dl (32.0-37.0); MEAN CORPUSCULAR VOLUME 86.1 fl (82.0-101.0); MEAN PLATELET VOLUME 9.3 fl (7.4-10.4); MONOCYTE # 1.1 10^3/ul (0.3-0.9); MONOCYTES % 8.2 % (0.0-11.0); NEUTROPHIL # 9.6 10^3/ul (1.6-7.5); NEUTROPHILS % 74.9 % (39.0-77.0); PLATELET COUNT 378 10^3/UL (140-415); POSITIVE DIFF @See below; RED BLOOD COUNT 4.03 10^6/ul (4.70-6.10); RED CELL DISTRIBUTION WIDTH 21.4 % (11.5-14.5)
[2018-12-03 01:16] LABS: WHITE BLOOD COUNT 12.9 10^3/ul (4.8-10.8)
[2018-12-03] MEDS: morphine 2 MG INJ IV (01:25)
[2018-12-03] MEDS: VANCOMYCIN HCL 1.5 GM in SOD CHLORIDE 0.9% 250 ML IVPB ×3 (02:00→21:34)
[2018-12-03 08:37] LABS: ADD MAN DIFF? NO
[2018-12-03 08:38] LABS: WHITE BLOOD COUNT 14.2 10^3/ul (4.8-10.8)
[2018-12-03 08:38] LABS: ABNORMAL IP MESSAGE 1; BASOPHILS % 0.3 % (0.0-2.0); EOSINOPHILS # 0.4 10^3/ul (0.0-0.5); EOSINOPHILS % 2.6 % (0.0-7.0); HEMATOCRIT 34.6 % (42.0-52.0); HEMOGLOBIN 9.6 g/dl (14.0-18.0); LYMPHOCYTES # 1.6 10^3/ul (0.8-2.9); LYMPHOCYTES % 11.4 % (15.0-51.0); MEAN CORPUSCULAR HEMOGLOBIN 23.9 pg (29.0-33.0); MEAN CORPUSCULAR HGB CONC 27.7 g/dl (32.0-37.0); MEAN CORPUSCULAR VOLUME 86.3 fl (82.0-101.0); MEAN PLATELET VOLUME 9.4 fl (7.4-10.4); MONOCYTE # 1.3 10^3/ul (0.3-0.9); NEUTROPHIL # 10.6 10^3/ul (1.6-7.5); NEUTROPHILS % 74.5 % (39.0-77.0); NUCLEATED RED BLOOD CELLS% 0.1 /100WBC (0.0-0.0); PLATELET COUNT 396 10^3/UL (140-415); POSITIVE DIFF @See below; RED BLOOD COUNT 4.01 10^6/ul (4.70-6.10); RED CELL DISTRIBUTION WIDTH 21.5 % (11.5-14.5)
[2018-12-03] MEDS: TRIAMCINOLONE ACET 0.025% 15 GM OINT TOP ×4 (09:00→21:13)
[2018-12-03] MEDS: FOLIC ACID 1 MG TAB PO (09:07)
[2018-12-03] MEDS: LOSARTAN 50 MG TAB PO (09:07)
[2018-12-03] MEDS: FUROSEMIDE 20 MG INJ IV (09:08)
[2018-12-03] MEDS: traMADol 50 MG TAB PO (09:08)
[2018-12-03] MEDS: MOMETASONE 0.24 GM INHALER INH ×2 (09:13→20:32)
[2018-12-03] MEDS: ENOXAPARIN 40 MG/0.4 ML SYG SC (09:47)
[2018-12-03] MEDS: ALBUTEROL/IPRATROPIUM (NEB) 3 ML AMP HHN (11:23)
[2018-12-03] MEDS: CLOBETASOL 0.05% 15 GM OINT TOP ×2 (14:21→21:13)
[2018-12-03] MEDS: NYSTATIN 30 GM POWDER BTL TOP ×2 (14:21→21:13)
[2018-12-03] MEDS: DAKINS 0.0125%(1/40) 473 ML SOLUTION TP (14:22)
[2018-12-03 16:36] LABS: AADO2 Arterial 61.5 mmHg (7.0-24.0); Allen Test ACCEPTAB; Arterial Base Excess 11.1 mmol/L (-3.0-3); Arterial COHb 0.6 % (0.0-3.0); Arterial Fraction of Oxyhgb 96.1 % (93.0-99.0); Arterial HCO3 39.6 mmol/L (22.0-26.0); Arterial MetHb 0.3 % (0.0-1.5); MODE NASAL CANNULA; Site Left Radial
[2018-12-03 18:15] LABS: VANCOMYCIN,TROUGH 7.9 ug/ml (10.0-20.0)
[2018-12-03] MEDS ORDERED: METHOTREXATE 2.5 MG TAB PO ×2 (19:30→21:00)
[2018-12-03] MEDS: DIPHENHYDRAMINE 25 MG CAP PO (20:28)
[2018-12-03] MEDS: ATORVASTATIN 40 MG TAB PO (21:13)
[2018-12-03] MEDS: KETOROLAC 15 MG INJ IV (21:28)
[2018-12-03] MEDS: CALAMINE 170 ML LOT TOP (23:29)
[2018-12-03] MEDS: METHOTREXATE 2.5 MG TAB PO (23:48)
[2018-12-04] MEDS: ALBUTEROL/IPRATROPIUM (NEB) 3 ML AMP HHN (01:59)
[2018-12-04] MEDS: DIPHENHYDRAMINE 25 MG CAP PO (03:30)
[2018-12-04] MEDS: morphine 2 MG INJ IV (03:31)
[2018-12-04] MEDS: VANCOMYCIN HCL 1.5 GM in SOD CHLORIDE 0.9% 250 ML IVPB (05:27)
[2018-12-04] MEDS: KETOROLAC 15 MG INJ IV ×2 (06:39→15:26)
[2018-12-04] MEDS: FUROSEMIDE 20 MG INJ IV (08:23)
[2018-12-04] MEDS: FOLIC ACID 1 MG TAB PO (08:23)
[2018-12-04] MEDS: LOSARTAN 50 MG TAB PO (08:23)
[2018-12-04] MEDS: TRIAMCINOLONE ACET 0.025% 15 GM OINT TOP ×3 (08:23→13:00)
[2018-12-04] MEDS: CLOBETASOL 0.05% 15 GM OINT TOP (08:24)
[2018-12-04] MEDS: NYSTATIN 30 GM POWDER BTL TOP (08:25)
[2018-12-04] MEDS: MOMETASONE 0.24 GM INHALER INH (08:27)
[2018-12-04 08:28] LABS: CREATININE 0.62 mg/dl (0.61-1.24)
[2018-12-04 08:28] LABS: BLOOD UREA NITROGEN 19 mg/dl (7-20)
[2018-12-04] MEDS: DAKINS 0.0125%(1/40) 473 ML SOLUTION TP (08:30)
[2018-12-04] MEDS: ENOXAPARIN 40 MG/0.4 ML SYG SC (08:46)
== END 2018-12-04 16:30 | DRG 166 ==
LOC: E/R 17:30 → TEL 18:53
PROC: 5A09457 Assistance with Respiratory Ventilation, 24-96 Consecutive Hours, Continuous Positive Airway Pressure (ICD-10-PCS; principal; 2018-11-12)
PROC: 0JBR0ZZ Excision of Left Foot Subcutaneous Tissue and Fascia, Open Approach (ICD-10-PCS; 2018-11-23)
PROC: 0HBRXZZ Excision of Toe Nail, External Approach (ICD-10-PCS; 2018-11-23)
DX: E66.2 Morbid (severe) obesity with alveolar hypoventilation (principal); I50.31 Acute diastolic (congestive) heart failure; J96.22 Acute and chronic respiratory failure with hypercapnia; J96.21 Acute and chronic respiratory failure with hypoxia; Z68.44 Body mass index [BMI] 60.0-69.9, adult; J44.0 Chronic obstructive pulmonary disease with (acute) lower respiratory infection; L97.321 Non-pressure chronic ulcer of left ankle limited to breakdown of skin; L03.116 Cellulitis of left lower limb; I87.2 Venous insufficiency (chronic) (peripheral); I89.0 Lymphedema, not elsewhere classified; L40.9 Psoriasis, unspecified; D64.9 Anemia, unspecified; J20.9 Acute bronchitis, unspecified; I11.0 Hypertensive heart disease with heart failure; B95.62 Methicillin resistant Staphylococcus aureus infection as the cause of diseases classified elsewhere; B95.2 Enterococcus as the cause of diseases classified elsewhere; B96.89 Other specified bacterial agents as the cause of diseases classified elsewhere; Z71.3 Dietary counseling and surveillance; Z79.84 Long term (current) use of oral hypoglycemic drugs; Z79.52 Long term (current) use of systemic steroids; Z79.899 Other long term (current) drug therapy
CPT/HCPCS: 36415; 36600; 71045; 73610; 73610-RT; 73630; 73630-LT; 80048; 80053; 80061; 80202; 81003; 82565; 82803; 83735; 83880; 84100; 84484; 84520; 85025; 87070; 93005; 93306; 93923; 94640; 94660; 94664; 94760; 97110; 97116; 97162; 97164; 97530; 99285-25